=== PATIENT | female | born 1965 | race Native Hawaiian/Other Pacific Islander ===

== ENCOUNTER 2017-07-19 13:59 | Outpatient (CLI) | payer OTHER ==
[~2017-07-19 13:59] MED LIST: ACET-655 PO; ACET-689 PO; ADIPEX-P37.5 M1 PO; ALPR1TAB61 PO; BENZ100C8 PO; CELEBREX200 MG PO; CLARITIN10 M1 PO; FLOVENT HFA110 MCG IN; FLUT0.05 NAS; FURO20TA67 PO; HYDROCOD/HOM1 ML PO; LEVAQUIN500 MG PO; LISI10TA11 PO; LOPRESSOR PO; LORA10TA3 PO; MEDROL DOSEPAK4 MG OR; MEDROL DOSEPAK4 MG PO; METO25TA4 PO; NYSTATIN100000 MG PO; OMEP40CA PO; PHENTERMINE37.5 M1 OR; POTASSIUM PO; PRILOSEC40 MG OR; PROAIR HFA IN; PROM25TA52 PO; ROBAXIN500 MG PO; TIOTCAP2 INH; TRIM800T12 PO; Z-PAK PO; ZITHROMAX500 MG PO
== END 2017-07-19 19:50 | disposition home or self-care (01) ==
LOC: RAD 13:59
DX: M54.5 Low back pain (principal)

== ENCOUNTER 2018-02-06 14:35 | Emergency (ER) | payer OTHER ==
[~2018-02-06] VITALS: Ht 154.9 cm; Wt 67.6 kg
[2018-02-06 14:40] VITALS: TEMP 97.9
[2018-02-06 15:47] LABS: PLATELET COUNT 257 K/uL (152-353)
[2018-02-06 16:14] LABS: PARTIAL THROMBOPLASTIN TIME 27.4 SECONDS (24.5-33.6)
[2018-02-06 16:50] VITALS: BP 121/71
== END 2018-02-06 16:50 | disposition home or self-care (01) ==
LOC: ED 14:35
PROVIDERS: Family Medicine
DX: L03.116 Cellulitis of left lower limb (principal); L03.115 Cellulitis of right lower limb; I87.2 Venous insufficiency (chronic) (peripheral)
CPT/HCPCS: 36415; 80053; 81000; 85027; 85610; 85730; 99283